=== PATIENT | male | born 2005 | race Two or more races ===

== ENCOUNTER 2024-07-17 11:57 | Emergency (ER) | payer SELFPAY ==
[2024-07-17] MEDS ORDERED: predniSONE 20 MG TAB ONE (12:32)
[2024-07-17] MEDS ORDERED: IPRATROPIUM BROM 0.5MG/2.5ML ONE (12:35)
[2024-07-17] MEDS ORDERED: ALBUTEROL 2.5 MG/3 ML NEB SOL ONE (12:35)
--- NOTE | 2024-07-17 13:21 | RAD REPORT ---
EXAM: Chest Pa And Lat (2 Views) HISTORY: COUGH COMPARISON: None. FINDINGS: LUNGS/PLEURA: The lungs are clear. No pleural effusions or pneumothorax. No pulmonary edema. MEDIASTINUM: The mediastinal silhouette is within normal limits. CARDIAC: The cardiac silhouette is within normal limits. UPPER ABDOMEN: No significant abnormality. BONES: No acute fracture. LINES/TUBES/OTHER: N/A IMPRESSION: No evidence of acute cardiopulmonary disease
--- NOTE | 2024-07-17 13:47 | EDPHYS ---
Physician Documentation [facility] Name: Neo Pérez Age: 19 yrs Sex: Male : 2005 Arrival Date: 07/17/2024 Time: 11:57 Bed 14 Private MD: ED Physician Jonh Hernandez HPI: 07/17 14:54 This 19 yrs old Male presents to ER via Ambulatory with complaints of Cough, rt Congestion, Breathing Difficulty. 14:54 Patient presents to the ED with cough for about a month. Patient is episodes of rt coughing where his breathing becomes difficult. Denies chest pain. Denies other acute complaints. Patient reported smokes marijuana but denies other cigarette use. Symptoms are moderate in severity, no other aggravating or alleviating factors.. Historical: - Allergies: 12:16 No Known Allergies; hb - Home Meds: 12:16 None [Active]; hb - PMHx: 12:16 None; hb - PSHx: 12:16 None; hb - Immunization history:: Adult Immunizations up to date. - Infectious Disease History:: Denies. - Social history:: Smoking status: Patient denies any tobacco usage or history of. Patient uses street drugs, marijuana. - Family history:: not pertinent. ROS: 14:54 Constitutional: Negative for fever, chills, and weight loss, Cardiovascular: Negative rt for chest pain, palpitations, and edema, Abdomen/GI: Negative for abdominal pain, nausea, vomiting, diarrhea, and constipation, MS/Extremity: Negative for injury and deformity, Skin: Negative for injury, rash, and discoloration, Neuro: Negative for headache, weakness, numbness, tingling, and seizure, 14:54 Respiratory: Positive for cough, shortness of breath, Exam: 14:54 Constitutional: This is a well developed, well nourished patient who is awake, alert, rt and in no acute distress. Head/Face: Normocephalic, atraumatic. Chest/axilla: Normal chest wall appearance and motion. Nontender with no deformity. No lesions are appreciated. Cardiovascular: Regular rate and rhythm with a normal S1 and S2. No gallops, murmurs, or rubs. Normal PMI, no JVD. No pulse deficits. Respiratory: Lungs have equal breath sounds bilaterally, clear to auscultation and percussion. No rales, rhonchi or wheezes noted. No increased work of breathing, no retractions or nasal flaring. Abdomen/GI: Soft, non-tender, with normal bowel sounds. No distension or tympany. No guarding or rebound. No evidence of tenderness throughout. Skin: Warm, dry with normal turgor. Normal color with no rashes, no lesions, and no evidence of cellulitis. MS/ Extremity: Pulses equal, no cyanosis. Neurovascular intact. Full, normal range of motion. Vital Signs: 12:14 BP 134 / 86; Pulse 87; Resp 16; Temp 98.1(O); Pulse Ox 100% on R/A; Weight 63.5 kg; hb Height 5 ft. 7 in. ; Pain 1/10; 12:46 BP 120 / 66; Pulse 81; Resp 18; Temp 98.3; Pulse Ox 100% on R/A; ar6 14:00 BP 126 / 67; Pulse 84; Resp 18; Pulse Ox 99% on R/A; ar6 12:14 Body Mass Index 21.93 (63.50 kg, 170.18 cm) hb 12:14 Pain Scale: Adult hb MDM: 12:14 Patient medically screened. rt 14:54 Differential Diagnosis: Other Bronchitis, pneumonia, URI. Data reviewed: vital signs, rt nurses notes, radiologic studies. I considered the following discharge prescriptions or medication management in the emergency department Medications were administered in the Emergency Department. See MAR. Independent interpretation of the following test(s) in the Emergency Department X-Ray: My interpretation is No consolidation seen on my interpretation of x-ray images. Test considered but Not performed: CT: PE RC negative, low suspicion for pulmonary embolus, CT angiogram not indicated. Care significantly affected by the following Social Determinants of Health: Misuse of alcohol and/or drugs. Counseling: I had a detailed discussion with the patient and/or guardian regarding the historical points, exam findings, and any diagnostic results supporting the discharge/admit diagnosis, radiology results, the need for outpatient follow up, to return to the emergency department if symptoms worsen or persist or if there are any questions or concerns that arise at home. Response to treatment: the patient's symptoms have markedly improved after treatment. 07/17 12:22 Order name: Chest Pa And Lat (2 Views) XRAY; Complete Time: 13:26 rt Administered Medications: 12:39 Drug: DuoNeb Nebulize (3:1) (2.5 mg - 0.5 mg) 3 ml Nebulizer once Route: Nebulizer; ar6 14:07 Follow up: Response: No adverse reaction ar6 12:39 Drug: predniSONE PO 40 mg PO once Route: PO; ar6 14:07 Follow up: Response: No adverse reaction ar6 Disposition Summary: 07/17/24 13:47 Discharge Ordered Notes: Location: Home rt Problem: new rt Symptoms: have improved rt Condition: Stable rt Diagnosis - Cough rt Followup: rt - With: Private Physician - When: 2 - 3 days - Reason: Discharge Instructions: - Discharge Summary Sheet rt - Cough, Adult rt Forms: - Medication Reconciliation Form rt - Antibiotic Education rt - Prescription Opioid Use rt - Patient Portal Instructions rt - Leadership Thank You Letter rt Prescriptions: - albuterol sulfate 2.5 mg /3 mL (0.083 %) Inhalation Solution for Nebulization - nebulize 3 milliliter INHALATION route every 4 hours sa needed; 90 milliliter; rt Refills: 0, Product Selection Permitted - albuterol sulfate 90 mcg/actuation Inhalation HFA Aerosol Inhaler - inhale 2 puff INHALATION route every 4 hours as needed; 2 Each; Refills: 0, rt Product Selection Permitted - Tessalon Perles 100 mg Oral Capsule - take 1 capsule ORAL route every 8 hours As needed; 15 capsule; Refills: 0, rt Product Selection Permitted - Prednisone 20 mg Oral Tablet - take 2 tablets ORAL route once daily for 5 days; 10 tablet; Refills: 0, Product rt Selection Permitted Signatures: Dispatcher [employer] EDRose Marie Araya RN RN Jonh Hernandez MD MD rt Mayuri Alonso RN RN ar6
--- NOTE | 2024-07-17 13:47 | ER ---
Nurse's Notes [facility] Name: Neo Pérez Age: 19 yrs Sex: Male : 2005 Arrival Date: 07/17/2024 Time: 11:57 Bed 14 Private MD: Diagnosis: Cough Presentation: 07/17 12:14 Chief complaint: Worsening cough, congestion, and SOB x 1 month. Coronavirus screen: hb Client presents with at least one sign or symptom that may indicate coronavirus-19. Provider contacted for isolation considerations. Ebola Screen: No symptoms or risks identified at this time. Initial Sepsis Screen: Does the patient meet any 2 criteria? No. Patient's initial sepsis screen is negative. Does the patient have a suspected source of infection? No. Patient's initial sepsis screen is negative. Risk Assessment: Do you want to hurt yourself or someone else? Patient reports no desire to harm self or others. Onset of symptoms was June 2024. 12:14 Method Of Arrival: Ambulatory 12:14 Acuity: KEELEY 3 hb Historical: - Allergies: 12:16 No Known Allergies; hb - Home Meds: 12:16 None [Active]; hb - PMHx: 12:16 None; hb - PSHx: 12:16 None; hb - Immunization history:: Adult Immunizations up to date. - Infectious Disease History:: Denies. - Social history:: Smoking status: Patient denies any tobacco usage or history of. Patient uses street drugs, marijuana. - Family history:: not pertinent. Screenin:46 [facility] ED Fall Risk Assessment (Adult) History of falling in the last 3 months, ar6 including since admission No falls in past 3 months (0 pts) Confusion or Disorientation No (0 pts) Intoxicated or Sedated No (0 pts) Impaired Gait No (0 pts) Mobility Assist Device Used No (0 pt) Altered Elimination No (0 pt) Score/Fall Risk Level 0 - 2 = Low Risk Oriented to surroundings, Maintained a safe environment, Hourly rounding (assess needs \T\ fall precautionary measures) done. Abuse screen: Denies threats or abuse. Denies injuries from another. Nutritional screening: No deficits noted. Tuberculosis screening: No symptoms or risk factors identified. Assessment: 12:46 General: Appears in no apparent distress. uncomfortable, Behavior is calm, cooperative, ar6 appropriate for age. Pain: Complains of pain in face. Neuro: Level of Consciousness is awake, alert, obeys commands, Oriented to person, place, time, situation. Cardiovascular: Capillary refill < 3 seconds. Respiratory: Reports shortness of breath at rest on exertion Airway is patent Breath sounds with wheezes bilaterally. GI: Abdomen is round non-distended. : No signs and/or symptoms were reported regarding the genitourinary system. EENT: No signs and/or symptoms were reported regarding the EENT system. Derm: Skin is intact, is healthy with good turgor, Skin is dry, Skin is pink, warm \T\ dry. Musculoskeletal: No signs and/or symptoms reported regarding the musculoskeletal system. Vital Signs: 12:14 BP 134 / 86; Pulse 87; Resp 16; Temp 98.1(O); Pulse Ox 100% on R/A; Weight 63.5 kg; hb Height 5 ft. 7 in. ; Pain 1/10; 12:46 BP 120 / 66; Pulse 81; Resp 18; Temp 98.3; Pulse Ox 100% on R/A; ar6 14:00 BP 126 / 67; Pulse 84; Resp 18; Pulse Ox 99% on R/A; ar6 12:14 Body Mass Index 21.93 (63.50 kg, 170.18 cm) hb 12:14 Pain Scale: Adult hb ED Course: 12:00 Patient arrived in ED. mr 12:02 Jonh Hernandez MD is Attending Physician. rt 12:09 Mayuri Alonso, RN is Primary Nurse. ar6 12:16 Triage completed. hb 12:17 Arm band placed on. hb 12:46 No apparent distress. Awaiting for x-ray. ar6 12:46 Patient has correct armband on for positive identification. Bed in low position. Call ar6 light in reach. Side rails up X 1. Provided Education on: plan of care. Pulse ox on. NIBP on. Door closed. Noise minimized. Lights dimmed. Head of bed elevated. 12:46 No provider procedures requiring assistance completed. ar6 13:18 Chest Pa And Lat (2 Views) XRAY In Process Unspecified. EDMS 14:07 Patient did not have IV access during this emergency room visit. ar6 Administered Medications: 12:39 Drug: DuoNeb Nebulize (3:1) (2.5 mg - 0.5 mg) 3 ml Nebulizer once Route: Nebulizer; ar6 14:07 Follow up: Response: No adverse reaction ar6 12:39 Drug: predniSONE PO 40 mg PO once Route: PO; ar6 14:07 Follow up: Response: No adverse reaction ar6 Medication: 12:46 VIS not applicable for this client. ar6 Outcome: 13:47 Discharge ordered by . rt 14:07 Discharged to home ambulatory, with family, ar6 14:07 Condition: good 14:07 Discharge instructions given to patient, family, Instructed on discharge instructions, follow up and referral plans. medication usage, Demonstrated understanding of instructions, follow-up care, medications, Prescriptions given X 4, 14:08 Patient left the ED. ar6 Signatures: Dispatcher [employer] EDEloise Urbano, Rose Marie Gordon, RN RN Jonh Wood MD MD rt Roberts, Amber, RN RN ar6
[2024-07-17 14:12] VITALS: O2SAT 100
[2024-07-17 14:14] VITALS: BP 120/66; TEMP 98.3
== END 2024-07-17 14:08 | disposition home or self-care (01) ==
LOC: ER 11:57
DX: R05.9 Cough, unspecified (principal); R06.02 Shortness of breath
CPT/HCPCS: 71046; 99284; J7512; J7613; J7644